=== PATIENT | female | born 1990 | race Two or more races ===

== ENCOUNTER 2018-12-07 16:14 | Emergency (ER) | payer OTHER ==
[2018-12-07] MEDS: LIDOCAINE/MYLANTA 40 ML BTL PO (16:58)
[2018-12-07] MEDS: BELLADONNA/PHENOBARBITAL TAB PO (16:58)
[2018-12-07 17:32] LABS: ANION GAP 10 (5-13); BLOOD UREA NITROGEN 11 mg/dl (7-20); CALCIUM 9.4 mg/dl (8.4-10.2); CARBON DIOXIDE 25 mmol/L (21-31); CHLORIDE 106 mmol/L (97-110); CREATININE 0.62 mg/dl (0.44-1.00); Estimated GFR > 60 mL/min (>60); GLUCOSE 98 mg/dl (70-220); POTASSIUM 3.7 mmol/L (3.5-5.1); SODIUM 141 mmol/L (135-144)
== END 2018-12-08 06:38 | disposition home or self-care (01) ==
LOC: E/R 12-08 06:38
DX: T39.311A Poisoning by propionic acid derivatives, accidental (unintentional), initial encounter (principal)
CPT/HCPCS: 36415; 80048; 81025; 99283